=== PATIENT | female | born 1955 | race Caucasian/White ===

== ENCOUNTER 2019-01-15 20:21 | Emergency (ER) | payer MEDICARE, OTHER, SELFPAY ==
[2019-01-15 20:22] VITALS: BP 157/76; PULSE 73; RESP 18; TEMP 36.8; O2SAT 97; BMI 26.8
[2019-01-15 21:53] VITALS: PULSE 75; RESP 15; O2SAT 96
--- NOTE | 2019-01-15 21:53 | ED.DCSUM_ITS ---
- ER Visit Summary Date of Service: 01/15/19 Chief Complaint: Swollen lymph nodes left-sided neck History of Present Illness: The patient is a 63 F plan swollen lymph nodes left side of her neck with discomfort. Started today. No fever. No sore throat. No earache. No chills. No dental pain or swelling. Physical Examination: Older female no acute distress vital signs stable afebrile. at bedside. H EENT exam both TMs are normal both canals are normal. No redness or swelling. Dentition upper dentures. Lower dentition unremarkable. Nontender no jaw swelling. Neck she is 1-2 swollen lymph nodes at the angle of her left jaw. There is no swelling of the jaw. Trachea midline. No right-sided or posterior lymphadenopathy. Lungs clear to auscultation. Heart regular rhythm no murmur. Abdomen soft. Neurologically awake and alert with no focal motor deficits. Test Results: None Emergency Department Course and Treatment: Discussed with patient cervical lymphadenopathy. She states she has Bactrim at home and she wants to use that. She will take Bactrim 1 pill twice a day for 7 days. Treatment Plan: Home antibiotic for 1 week. Follow-up if not improving. Disposition: Discharge Impression: Left anterior chain cervical lymphadenopathy This note was generated with [employer] dictation software. It may contain incorrect words, spelling, and punctuation that were not noted in review of the chart prior to signing ED Disposition - Plan for ED Patient: Referrals: Alesia Montes De Oca PA [Primary Care Provider] -
--- NOTE | 2019-01-15 21:55 | ED.DEP ---
ED Disposition - Plan for ED Patient: Disposition: Home or Assisted Living Instructions: CERVICAL ADENITIS, Antiobiotic Treatment Prescriptions: Cephalexin [Keflex] 500 mg PO Q6 #28 cap Prescription Printed Referrals: Alesia Montes De Oca PA [Primary Care Provider] - 3-5 Days if not improving Additional Instructions: Bactrim 1 pill twice a day for 1 week. If not improving stop the Bactrim and start the Keflex prescription I wrote for you. Your doctor if not improving. Return if a lot worse.
== END 2019-01-15 22:03 | disposition home or self-care (01) ==
PROVIDERS: Emergency Provider Emergency Medicine; Family Provider Physician Assistant; PCP Physician Assistant
DX: R59.0 Localized enlarged lymph nodes (principal)
CPT/HCPCS: 99282

== ENCOUNTER → 2019-02-21 13:55 | Outpatient (CLI) | payer MEDICARE, OTHER, SELFPAY | PROVIDERS: Family Provider Physician Assistant; PCP Physician Assistant; Referring Provider Family Medicine; Visit Provider Family Medicine | DX: R07.9 Chest pain, unspecified (principal) | CPT/HCPCS: 84484 ==

== ENCOUNTER 2019-05-31 17:51 | Observation (INO) | payer MEDICARE, OTHER, SELFPAY ==
[2019-05-31] VITALS (8 sets, daily range): BP systolic 138–164; BP diastolic 60–90; PULSE 70–82; RESP 13–20; TEMP 36.2–36.4; O2SAT 98–100; BMI 28.3; BMI 28.7
--- NOTE | 2019-05-31 19:00 | EKG12_ITS ---
Test Reason : CP Blood Pressure : / mmHG Vent. Rate : 073 BPM Atrial Rate : 073 BPM P-R Int : 112 ms QRS Dur : 090 ms QT Int : 422 ms P-R-T Axes : 050 043 035 degrees QTc Int : 464 ms Normal sinus rhythm Nonspecific ST abnormality Abnormal ECG Confirmed by MARIETTA TALBERT ([id number]), sound editor MONY PEREZ ([id number]) on 06/02/2019 10:30:35 AM Referred By: JOSE MANUEL
[2019-05-31] MEDS: Aspirin 81 MG TAB.CHEW 324 MG PO (19:04)
--- NOTE | 2019-05-31 19:04 | RAD_ITS ---
STUDY: X-RAY CHEST REASON FOR EXAM: Female, 63 years old. SOB TECHNIQUE: Single frontal view of the chest. COMPARISON: November 20, 2015. FINDINGS: Cardiac silhouette unremarkable. Pulmonary vascularity unremarkable. Aorta unremarkable. No focal airspace opacities. No pleural effusions. Upper abdomen unremarkable. Osseous structures intact. No pneumothorax. RAD/Chest 1 View (Portable) IMPRESSION: No acute cardiopulmonary findings Electronically Signed: Freddy Lester, at 19:45 EST Tel , Service support ,
[2019-05-31] MEDS: 0.9% Normal Saline 1,000 ML 150 ML IV (19:15)
[2019-05-31 19:17] LABS: Absolute Lymphocyte Count 2.28 X10^3/uL (0.83-4.51); Absolute Neutrophil Count 3.8 X10^3/uL (2.0-7.7); Basophil# 0.04 X10^3/uL; Basophil% 0.6 % (0-1); Eosinophil# 0.08 X10^3/uL; Eosinophils% 1.2 % (0-5); Hematocrit 43.9 % (37-47); Hemoglobin 14.3 g/dL (12.0-15.0); Lymphocyte # 2.28 X10^3/ul (4.0); Lymphocyte % 33.1 % (19-41); Mean Corp Hgb Conc 32.6 g/dL (32-36); Mean Corpuscular Hgb 30.9 pg (27.0-32.0); Mean Corpuscular Volume 94.8 fL (81-99); Mean Platelet Vol. 9.2 fl (6.2-12.0); Monocyte# 0.67 X10^3/uL; Monocyte% 9.7 % (0-10); NRBC Flagged by Analyzer 0 % (0-5); Neutrophil # 3.78 X10^3/uL (2.7-7.7); Neutrophil % 54.8 % (47-70); Platelet Count 309 K/mm3 (150-450); RBC Distribution Width CV 12.7 % (11.6-14.6); Red Blood Count 4.63 M/mm3 (4.2-5.4); White Blood Count 6.9 K/mm3 (4.4-11.0)
[2019-05-31 19:28] LABS: Anion Gap 9 (5-15); BUN 12 mg/dL (7-18); BUN/Creat Ratio 14.5 RATIO (10-20); Calcium,Total 10.2 mg/dL (8.5-10.1); Chloride 104 mmol/L (98-107); Creatinine, Serum 0.83 mg/dL (0.55-1.02); EST Glomerular Filtration Rate 74 mL/min (>60); Est Glom Filt Rate - Afr Amer 89 mL/min (>60); Estimated Creatinine Clearance 60.81 ml/min; Glucose 102 mg/dL (74-106); Potassium 4.1 mmol/L (3.5-5.1); Sodium Level 140 mmol/L (136-145)
--- NOTE | 2019-05-31 19:40 | ED.VISSUMM ---
- ER Visit Summary Date of Service: 05/31/19 Chief Complaint: Neck and chest pain History of Present Illness: The patient is a [address] Puri. She reports that she has intermittent neck and chest pain that began approximate 1 month ago. States it is happening every 2 to 3 days. She states that she woke with this from sleep 2 days ago. She was diaphoretic and at that time. She reports the most recent episode began today at 1 PM while she was at rest. The last approximately 2 hours ago. It was a sharp pain that was 10 on 10 severity. Began on the right side of her neck and radiated down into the right upper back and into her chest. It was 10 out of 10 at worst and is 3 out of 10 currently. This was not changed with exertion or deep breaths. In fact, she reports that is improved by deep breaths. She took nitro without relief. She denies any associated nausea, vomiting, or shortness of breath. Patient has no coronary risk factors. She does have a history of rheumatoid arthritis. She has never had a heart catheterization. She had a stress test 4 years ago. States that she is scheduled for a stress test on June 20. Physical Examination: Vitals: Stable. Afebrile. General: Well-nourished and well-developed. Head: Normocephalic atraumatic. Neck: Supple, no lymphadenopathy. No JVD. Nontender. I am unable to reproduce her pain with palpation of her neck or back. Cardiovascular: Regular rate and rhythm. No murmurs. Respiratory: No respiratory distress. Clear to auscultation bilaterally. Chest is nontender. Abdominal: Soft, nontender, nondistended, normal bowel sounds. No guarding, rebound, or peritoneal signs. Back: Nontender. Extremities: Nontender, no edema. Skin: Normal color, no rash. Neurologic: Alert and oriented ?3. Cranial nerves II through XII are intact. Normal strength and sensation. Psych: Normal affect. Test Results: EKG is sinus at [address] changes. It is unchanged from 2016. CBC is normal. Chem-7 shows a calcium of 10.2. Troponin is negative. Chest x-ray is normal. Emergency Department Course and Treatment: Patient was given aspirin p.o. She is resting comfortably. She refused pain medications. Treatment Plan: The patient was discussed with Dr. Gutierrez. She has a heart score of 4 and will be admitted for further evaluation and treatment. Disposition: Admitted in stable condition. Impression: 1. Chest pain. 2. UMU score of 2. This note was generated with [employer] dictation software. It may contain incorrect words, spelling, and punctuation that were not noted in review of the chart prior to signing ED Disposition - Plan for ED Patient: Referrals: Alesia Montes De Oca PA [Primary Care Provider] -
--- NOTE | 2019-05-31 19:52 | PCM.HP.STD ---
Problem List (1) HLD (hyperlipidemia) Status: Chronic Comment: intolerant of statins (2) IBS (irritable bowel syndrome) Status: Chronic (3) Chest pain Status: Acute (4) GERD (gastroesophageal reflux disease) Status: Chronic Comment: occasional (5) Former smoker Status: Chronic Comment: quit in 2011 History of Present Illness Date of Admission: 05/31/19 Chief Complaint: Neck and chest pain. The patient is a 63 year old F patient with past medical history as mentioned above presented to the emergency room because of neck and chest pain. Her symptoms started today around 1 PM when she was sitting at her desk, started having pain that was located just below her right ear, went down to the neck and down to the chest on the middle of the chest, sharp pain, 10 out of 10 in severity, intermittent, lasts for about 30 to 45 seconds and was recurrent and without aggravating or relieving symptoms. She mentioned she has been having dose intermittent pains the same pattern in the last month but today, it was more frequent than usual. She denied associated shortness of breath, palpitation, dizziness, syncope or presyncope. She denied nausea, vomiting or diaphoresis. At this time, she has no more pain. Her blood pressure slightly better, other vital signs were stable. Routine blood work was unremarkable. Chest x-ray revealed no acute findings. EKG revealed normal sinus rhythm, no AR interval, normal QRS and without evidence of acute ischemic changes. Troponin was negative. She is being admitted for atypical chest pain for evaluation. Past Medical History Past Medical History (Chronic Problems): Chronic Problems HLD (hyperlipidemia) (Chronic) intolerant of statins Tobacco use disorder (Chronic) History of sciatica (Chronic) IBS (irritable bowel syndrome) (Chronic) History of gastrointestinal hemorrhage (Chronic) due to diverticular disease Diverticulosis of colon without diverticulitis (Chronic) GERD (gastroesophageal reflux disease) (Chronic) occasional Former smoker (Chronic) quit in 2011 Family history of breast cancer in mother (Chronic) Osteoarthritis (Chronic) Allergies erythromycin base [Erythromycin Base] Allergy (Severe, Verified 05/31/19 17:53) Anaphylaxis amoxicillin [Amoxicillin] Allergy (Verified 05/31/19 17:53) Upset Stomach atorvastatin Allergy (Verified 05/31/19 17:53) Unknown cefuroxime axetil [From Ceftin] Allergy (Verified 05/31/19 17:53) Diarrhea clindamycin Allergy (Verified 05/31/19 17:53) Hives methylprednisolone Allergy (Verified 05/31/19 17:53) Heart races prednisone Allergy (Verified 05/31/19 17:53) Swelling amoxicillin trihydrate [From Augmentin] Adverse Reaction (Verified 05/31/19 17:53) Diarrhea potassium clavulanate [From Augmentin] Adverse Reaction (Verified 05/31/19 17:53) Diarrhea Home Medications: Ambulatory Orders Medication Instructions Recorded Furosemide [Lasix] 20 mg PO DAILY PRN PRN 09/12/13 Docusate Sodium [Colace] 100 mg PO QHS 09/22/13 Cholecalciferol (Vitamin D3) 5,000 units PO DAILY 11/20/15 [Vitamin D3] [place]-3 Fatty Acids/Fish Oil [Fish 1,000 mg PO DAILY 11/20/15 Oil 1,000 mg Capsule] cycloBENZAPRine HCl [Flexeril] 10 mg PO QHS 11/20/15 Nitroglycerin (INPATIENT USE) 0.4 mg SUBLINGUAL Q5M PRN #1 bottle 11/21/15 [Nitrostat] Cranberry Fruit Concentrate [Azo 250 mg PO DAILY 03/24/17 Cranberry] L.acidoph,Paracasei, B.lactis 1 each PO QHS 03/24/17 [Probiotic] Hydroxychloroquine Sulfate 200 mg PO BID 01/15/19 [Plaquenil] Biotin 1 mg PO DAILY 05/31/19 Hydrocortisone [Anusol Hc] 25 mg RECTAL BID PRN PRN 05/31/19 Meclizine HCl 25 mg PO Q6H PRN 05/31/19 Naproxen Sodium 440 mg PO DAILY PRN PRN 05/31/19 Omeprazole [Prilosec] 20 mg PO BID 05/31/19 Surgical History: colectomy - Partial colectomy for diverticulosis, hysterectomy - Initially had oophorectomy X 1 for a tubal and then had a hyster for DUB and then had the other ovary removed because...it was the size of a grapefruit., tonsillectomy, - - Carpal tunnel release on the right Psychiatric History: No pertinent psych hx 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 Paternal History Items: Cancer Review of Systems Constitutional: Denies: Anorexia, Chills, Fever, Weakness Eyes: Denies: Blurred vision, Double vision, Drainage, Redness HEENT: Denies: Difficulty Hearing, Ear Pain, Eye Pain, Nasal Congestion, Sore Throat Cardiovascular: Reports: Chest Pain. Denies: Chest Pressure, Chest Tightness, Edema, Heaviness, Orthopnea, Paroxysmal Noc. Dyspnea, Syncope Respiratory: Denies: Cough, Pleuritic Pain, Shortness of Breath, Sputum production, Wheezing Gastrointestinal: Denies: Abdominal Pain, Constipation, Diarrhea, Nausea, Vomiting Genitourinary: Denies: Dysuria, Frequency, Hematuria Musculoskeletal: Reports: Neck Pain. Denies: Arm Pain, Back Pain, Foot Pain Skin: Denies: Dryness, Rash Neurological: Denies: Balance problems, Double vision, Change in Speech, Slurred speech, Headaches, Incoordination, Numbness Psychiatric: Denies: Anxiety, Depression Endocrine: Denies: Change in Body Habitus, Polydipsia, Polyuria VTE Information - Inpt Only VTE Present on Admission: No VTE Mechan Device Prophylaxis: None VTE Pharm Prophylaxis ordered?: Yes - Physical Exam Vitals/I&O's: Vital Signs Temp Pulse Resp BP Pulse Ox 97.1 F L 77 20 H 153/81 H 99 05/31/19 17:53 05/31/19 19:00 05/31/19 19:00 05/31/19 19:00 05/31/19 19:00 Oxygen Flow Rate (L/min) 2 Oxygen Delivery Method Nasal Cannula Weight: 170 lb Body Mass Index (BMI) 28.3 General: Alert, Oriented x3, Cooperative, No apparent distress HEENT: Atraumatic, PERRLA, EOMI, Normocephalic Oral: Moist Mucosa, No Gingival or Mucosal Lesions/ Ulcerations Neck: Supple, No JVD, Negative Carotid Bruits, Trachea Midline, Thyroid Normal Size and Texture Lungs: Clear to auscultation, Normal air movement, No rhonchi, No wheeze, No rales Cardiovascular: Regular rate, Regular Rhythm, Normal S1, Normal S2, PMI Normal Abdomen: Bowel Sounds Present, Soft, Non Tender, Non-Distended, No Hepato-splenomegaly Extremities: No clubbing, No cyanosis, No edema Skin: No rashes, No breakdown Lymphatic: No Cervical, Supraclavicular, or Inguinal Adenopathy Neurological: Cranial nerves II-XII grossly intact, Motor Exam 5/5 strength throughout Psych/Mental Status: Normal Affect, Appropriate, Alert and oriented to time, place, person, mood and affect Laboratory Results 05/31/19 18:15: WBC 6.9, RBC 4.63, Hgb 14.3, Hct 43.9, MCV 94.8, MCH 30.9, MCHC 32.6, RDW Std Deviation 44.0 H, RDW Coeff of Yusra 12.7, Plt Count 309, MPV 9.2, Immature Gran % (Auto) 0.600, Neut % (Auto) 54.8, Lymph % (Auto) 33.1, [place] % (Auto) 9.7, Eos % (Auto) 1.2, Baso % (Auto) 0.6, Absolute Neuts (auto) 3.8, Absolute Lymphs (auto) 2.28, Nucleated RBC % 0 05/31/19 18:15: Sodium 140, Potassium 4.1, Chloride 104, Carbon Dioxide 27.0, Anion Gap 9, BUN 12, Creatinine 0.83, Estim Creat Clear Calc 60.81, Est GFR (MDRD) Af Amer 89, Est GFR (MDRD) Non-Af 74, BUN/Creatinine Ratio 14.5, Glucose 102, Calcium 10.2 H, Troponin I < 0.015 Clinical Impression(s) from Imaging Studies Chest X-Ray 05/31/19 19:04 IMPRESSION: No acute cardiopulmonary findings Electronically Signed: Freddy Lester, at 19:45 EST Tel , Service support , Current Medications Sodium Chloride () 1,000 mls @ 150 mls/hr IV .[id number] [facility] Last Admin: 05/31/19 19:15 Dose: 150 mls/hr Documented by: Assessment/Plan All Active Problems Chest pain (Acute) This is a 63 years old female patient presented to the emergency room because of neck and chest pain and she is being admitted for evaluation for atypical chest pain. #1 atypical chest pain: Risk factors are age and history of smoking, patient is a former smoker. No history of premature CAD in her family. EKG revealed no acute acute changes. Troponin is negative. Chest x-ray without acute findings. Plan: Admit to PCU for observation, cardiac monitoring, serial cardiac enzymes, repeat EKG tomorrow morning, IV fluids for hydration, nitroglycerin as needed, nuclear stress test tomorrow morning if cardiac enzymes are negative. #2 rheumatoid arthritis: Continue Flexeril and Plaquenil, Tylenol PRN. #3 GERD/esophageal spasm: Continue PPI, nebulizer PRN. #4 hyperlipidemia: She is not on statins, will check lipid profile. #5 DVT prophylaxis: Subcu Lovenox. This note was generated with [employer] dictation software. It may contain incorrect words, spelling, and punctuation that were not noted in checking the note before signing. Code Visit OBSV E&M: 98611 Initial observation care L2
--- NOTE | 2019-05-31 20:56 | EKG12_ITS ---
Test Reason : AM EKG Blood Pressure : / mmHG Vent. Rate : 069 BPM Atrial Rate : 069 BPM P-R Int : 130 ms QRS Dur : 090 ms QT Int : 446 ms P-R-T Axes : 046 022 026 degrees QTc Int : 477 ms Normal sinus rhythm Normal ECG When compared with ECG of 31-MAY-2019 21:37, MANUAL COMPARISON REQUIRED, DATA IS UNCONFIRMED Confirmed by MARIETTA TALBERT ([id number]), newspaper editor MONY PEREZ ([id number]) on 06/02/2019 10:43:15 AM Referred By: ENRRIQUE Confirmed By:MARIETTA TALBERT
[2019-05-31] MEDS: 0.9% Normal Saline 1,000 ML 75 ML IV (21:09)
[2019-05-31] MEDS: Hydroxychloroquine 200 MG Tablet PO (21:59)
[2019-05-31] MEDS: Pantoprazole Sodium 20 MG Tablet PO (22:00)
[2019-05-31] MEDS: Docusate Sodium 100 MG Capsule PO (22:00)
[2019-05-31] MEDS: cycloBENZAPRine HCl 10 MG Tablet PO (22:00)
[2019-06-01 03:00] VITALS: BP 118/52; PULSE 71; PULSE 75; RESP 18; TEMP 36.9; O2SAT 96
--- NOTE | 2019-06-01 05:55 | EKG12_ITS ---
Test Reason : CP ADMISSION Blood Pressure : / mmHG Vent. Rate : 069 BPM Atrial Rate : 069 BPM P-R Int : 130 ms QRS Dur : 088 ms QT Int : 456 ms P-R-T Axes : 049 029 032 degrees QTc Int : 488 ms Normal sinus rhythm Normal ECG When compared with ECG of 31-MAY-2019 17:56, MANUAL COMPARISON REQUIRED, DATA IS UNCONFIRMED Confirmed by MARIETTA TALBERT ([id number]), editor newspaper MONY PEREZ ([id number]) on 06/02/2019 10:43:57 AM Referred By: ENRRIQUE Confirmed By:MARIETTA TALBERT
[2019-06-01 06:00] VITALS: BP 117/57; PULSE 69; RESP 16; TEMP 36.8; O2SAT 97
[2019-06-01 07:01] VITALS: PULSE 77
[2019-06-01 10:17] VITALS: BP 119/84; PULSE 83; RESP 16; TEMP 36.7; O2SAT 98
[2019-06-01] MEDS: Hydroxychloroquine 200 MG Tablet PO (10:19)
[2019-06-01] MEDS: Pantoprazole Sodium 20 MG Tablet PO (10:19)
--- NOTE | 2019-06-01 13:11 | PCM.DC ---
You will use the following diet at home:: Cardiac Your food should be the consistency of: Regular Your liquids should be the consistency of: Regular/Thin Discharge Activity: Return to Normal Activity Allergies/Adverse Reactions: Allergies erythromycin base [Erythromycin Base] Allergy (Severe, Verified 05/31/19 17:53) Anaphylaxis atorvastatin Allergy (Verified 05/31/19 17:53) Unknown clindamycin Allergy (Verified 05/31/19 17:53) Hives amoxicillin [Amoxicillin] Adverse Reaction (Verified 05/31/19 20:01) Upset Stomach amoxicillin trihydrate [From Augmentin] Adverse Reaction (Verified 05/31/19 17:53) Diarrhea cefuroxime axetil [From Ceftin] Adverse Reaction (Verified 05/31/19 20:01) Diarrhea methylprednisolone Adverse Reaction (Verified 05/31/19 20:01) Heart races potassium clavulanate [From Augmentin] Adverse Reaction (Verified 05/31/19 17:53) Diarrhea prednisone Adverse Reaction (Verified 05/31/19 20:01) Swelling Medications to take at Discharge Furosemide [Lasix] 20 mg PO DAILY PRN PRN 09/12/13 Docusate Sodium [Colace] 100 mg PO QHS 09/22/13 Cholecalciferol (Vitamin D3) [Vitamin D3] 5,000 units PO DAILY 11/20/15 [place]-3 Fatty Acids/Fish Oil [Fish Oil 1,000 mg Capsule] 1,000 mg PO DAILY 11/20/15 cycloBENZAPRine HCl [Flexeril] 10 mg PO QHS 11/20/15 Nitroglycerin (INPATIENT USE) [Nitrostat] 0.4 mg SUBLINGUAL Q5M PRN #1 bottle 11/21/15 Cranberry Fruit Concentrate [Azo Cranberry] 250 mg PO DAILY 03/24/17 L.acidoph,Paracasei, B.lactis [Probiotic] 1 each PO QHS 03/24/17 Hydroxychloroquine Sulfate [Plaquenil] 200 mg PO BID 01/15/19 Biotin 1 mg PO DAILY 05/31/19 Hydrocortisone [Anusol Hc] 25 mg RECTAL BID PRN PRN 05/31/19 Meclizine HCl 25 mg PO Q6H PRN 05/31/19 Naproxen Sodium 440 mg PO DAILY PRN PRN 05/31/19 Omeprazole [Prilosec] 20 mg PO BID 05/31/19 Primary Care Physician: Alesia Montes De Oca PA [Primary Care Provider] - Please follow up with your Primary Care Physician in: 1-2 weeks Test Results: Test results from this visit will be discussed in further detail at your follow-up appointment, if applicable. Proposed Discharge Date: 06/01/19
--- NOTE | 2019-06-01 13:30 | STRESSREP ---
Stress Test Report Exercise myocardial perfusion stress test. 68-year-old lady with a history of chest pain. Stress protocol: Resting EKG demonstrates normal sinus rhythm with a rate of 73 bpm normal intervals are noted resting blood pressure is 142/82 mmHg. The patient exercised according to regular Jerald protocol for a total duration of 3 minutes and 31 seconds. The maximum heart rate attained was 151 bpm which was 100% of maximal predicted heart rate the maximum workload was 4.6 metabolic equivalents. Patient maintained sinus rhythm throughout the recording. At rest with no ST or T wave changes noted suggest ischemia at peak exercise upsloping ST changes were noted with no other criteria for ischemia. No clinical angina was noted the test was terminated due to target heart rate being achieved, and leg discomfort. Myocardial perfusion protocol. 11.5 mCi of technetium 99m sestamibi was injected at rest. The patient exercised according to regular Jerald protocol for 3-1/2 minutes at peak exercise 35.0 mCi of technetium 99m sestamibi was injected stress images were obtained stress and rest images were reconstructed and compared in the short axis vertical and horizontal long axis. Gated images were also obtained Perfusion SPECT analysis: Review of the images demonstrate normal uptake of tracer noted in all areas of the myocardium the resting images similar demonstrate normal uptake of tracer noted in all areas of the myocardium. No areas of reversibility are noted suggest ischemia no previous infarct is noted. Conclusion: Normal exercise myocardial perfusion stress test at a low workload. Preserved ejection fraction. No ischemia noted. Sensitivity for detection of ischemia may be affected by the low workload.
--- NOTE | 2019-06-01 14:15 | DS.PCM_ITS ---
<Douglas Lance - Last Filed: 06/01/19 14:15> Discharge Date and Diagnosis Date of Admission: 05/31/19 Date of Discharge: 06/01/19 - Primary Discharge Diagnosis Chest pain - musculoskeletal HLD IBS GERD Former smoker - Secondary Discharge Diagnosis Chronic Problems HLD (hyperlipidemia) (Chronic) intolerant of statins Tobacco use disorder (Chronic) History of sciatica (Chronic) IBS (irritable bowel syndrome) (Chronic) History of gastrointestinal hemorrhage (Chronic) due to diverticular disease Diverticulosis of colon without diverticulitis (Chronic) GERD (gastroesophageal reflux disease) (Chronic) occasional Former smoker (Chronic) quit in 2011 Family history of breast cancer in mother (Chronic) Osteoarthritis (Chronic) Hospital Course and Treatment Imaging Results: 06/01/19 05:55 Nuclear Stress Test - Treadmil [NM] Routine Conclusion: Normal exercise myocardial perfusion stress test at a low workload. Preserved ejection fraction. No ischemia noted. Sensitivity for detection of ischemia may be affected by the low workload. RAD/Chest 1 View (Portable) IMPRESSION: No acute cardiopulmonary findings Operations: None, - - Hand assisted laparoscopic sigmoid colectomy with open removal of sigmoid colon with extensive lysis of adhesions 09/22/13 Procedures: Stress test Summary of Care Provided: Hospital course: The patient is a 63 year old F with past medical history as above who presented to the emergency room with intermittent chest pain. Started at about 1 PM the day of presentation and was described as being in her neck below her right ear radiating down into the middle of the chest, 10 out of 10 in severity, lasting for about 30 to 45 seconds and coming and going throughout the day. In the emergency room she had a negative EKG, negative chest x-ray, negative troponin. She was admitted for chest pain work-up. Troponin was cycled x3 and was negative. She had no events on telemetry overnight. She was taken for stress test the following day and this was negative. She was felt to have musculoskeletal pain. She was discharged home in stable condition and will need to follow-up with her PCP in 1 to 2 weeks. This patient was seen by Douglas Lance PA-C under the supervision of Doctor Lawson. [] - Physical Exam Vitals/I&O's: Vital Signs Temp Pulse Resp BP Pulse Ox 98.1 F 83 16 119/84 H 98 06/01/19 10:17 01/29/20 10:17 06/01/19 10:17 06/01/19 10:17 06/01/19 10:17 Oxygen Flow Rate (L/min) 2 Oxygen Delivery Method Room Air Weight: 172 lb 9.951 oz Body Mass Index (BMI) 28.7 Intake and Output for Last 24 Hours 05/30/19 05/31/19 06/01/19 23:59 23:59 23:59 Intake Total 695.0 / 695.0 1017.50 / 1017.50 Balance 695.0 / 695.0 1017.50 / 1017.50 General: Alert, Oriented x3, Cooperative HEENT: Atraumatic, PERRLA, EOMI, Normocephalic Neck: Supple, No JVD, Negative Carotid Bruits Lungs: Clear to auscultation, Normal air movement Cardiovascular: Regular rate, No murmurs Abdomen: Bowel Sounds Present, Soft, Non Tender Extremities: No edema, Capillary Refill Less than 3 Seconds Skin: No rashes, No breakdown Musculoskeletal: No Tenderness to Palpation of Joints or Extremities Neurological: Cranial nerves II-XII grossly intact Psych/Mental Status: Appropriate, Anxious, Alert and oriented to time, place, person, mood and affect Laboratory Results 05/31/19 18:15: WBC 6.9, RBC 4.63, Hgb 14.3, Hct 43.9, MCV 94.8, MCH 30.9, MCHC 32.6, RDW Std Deviation 44.0 H, RDW Coeff of Yusra 12.7, Plt Count 309, MPV 9.2, Immature Gran % (Auto) 0.600, Neut % (Auto) 54.8, Lymph % (Auto) 33.1, Cottle % (Auto) 9.7, Eos % (Auto) 1.2, Baso % (Auto) 0.6, Absolute Neuts (auto) 3.8, Absolute Lymphs (auto) 2.28, Nucleated RBC % 0 05/31/19 18:15: Sodium 140, Potassium 4.1, Chloride 104, Carbon Dioxide 27.0, Anion Gap 9, BUN 12, Creatinine 0.83, Estim Creat Clear Calc 60.81, Est GFR (M DRD) Af Amer 89, Est GFR (MDRD) Non-Af 74, BUN/Creatinine Ratio 14.5, Glucose 102, Calcium 10.2 H, Troponin I < 0.015 05/31/19 21:12: Troponin I < 0.015 06/01/19 00:14: Troponin I < 0.015 Current Medications Acetaminophen (Tylenol) 650 mg PO Q6H PRN PRN PRN Reason: Pain Score 1-3/Temp > 100.7 F Cyclobenzaprine HCl (Flexeril) 10 mg PO QHS [facility] Last Admin: 05/31/19 22:00 Dose: 10 mg Documented by: Docusate Sodium (Colace) 100 mg PO BID [facility] Last Admin: 06/01/19 10:20 Dose: Not Given Documented by: Enoxaparin Sodium (Lovenox) 40 mg SC DAILY [facility] Hydralazine HCl (Apresoline Iv) 5 mg IV Q6H PRN PRN PRN Reason: for SBP>160 Hydroxychloroquine Sulfate (Plaquenil) 200 mg PO BID [facility] Last Admin: 06/01/19 10:19 Dose: 200 mg Documented by: Meclizine HCl (Antivert) 25 mg PO Q6H PRN PRN Reason: DIZZINESS Nitroglycerin (Nitrostat) 0.4 mg SUBLINGUAL Q5M PRN PRN Reason: CHEST PAIN Ondansetron HCl (Zofran) 4 mg IV Q8H PRN PRN PRN Reason: NAUSEA/VOMITING Pantoprazole Sodium (Protonix) 20 mg PO BID [facility] Last Admin: 06/01/19 10:19 Dose: 20 mg Documented by: Sodium Chloride () 10 - 40 ml IV UD PRN PRN Reason: SALINE FLUSH Discharge Diet: Low fat/ Low Cholesterol, 2000 mg Sodium Diet Discharge Activity: Return to Normal Activity Home Medications: Medications to take at Discharge Furosemide [Lasix] 20 mg PO DAILY PRN PRN 09/12/13 Docusate Sodium [Colace] 100 mg PO QHS 09/22/13 Cholecalciferol (Vitamin D3) [Vitamin D3] 5,000 units PO DAILY 11/20/15 Minto-3 Fatty Acids/Fish Oil [Fish Oil 1,000 mg Capsule] 1,000 mg PO DAILY 11/20/15 cycloBENZAPRine HCl [Flexeril] 10 mg PO QHS 11/20/15 Nitroglycerin (INPATIENT USE) [Nitrostat] 0.4 mg SUBLINGUAL Q5M PRN #1 bottle 11/21/15 Cranberry Fruit Concentrate [Azo Cranberry] 250 mg PO DAILY 03/24/17 L.acidoph,Paracasei, B.lactis [Probiotic] 1 each PO QHS 03/24/17 Hydroxychloroquine Sulfate [Plaquenil] 200 mg PO BID 01/15/19 Biotin 1 mg PO DAILY 05/31/19 Hydrocortisone [Anusol Hc] 25 mg RECTAL BID PRN PRN 05/31/19 Meclizine HCl 25 mg PO Q6H PRN 05/31/19 Naproxen Sodium 440 mg PO DAILY PRN PRN 05/31/19 Omeprazole [Prilosec] 20 mg PO BID 05/31/19 Primary Care Physician: Alesia Montes De Oca PA [Primary Care Provider] - Please follow up with your Primary Care Physician in: 1-2 weeks Disposition: Home Minutes spent on discharge:: 35 Patient Condition:: Stable Medical Necessity - Tobacco Use Smoking Status: Former smoker Meaningful Use Info Meaningful Use Diagnoses (Choose all that apply): None applicable <Payam Lawson - Last Filed: 06/01/19 14:25> Discharge Date and Diagnosis - Secondary Discharge Diagnosis Chronic Problems HLD (hyperlipidemia) (Chronic) intolerant of statins Tobacco use disorder (Chronic) History of sciatica (Chronic) IBS (irritable bowel syndrome) (Chronic) History of gastrointestinal hemorrhage (Chronic) due to diverticular disease Diverticulosis of colon without diverticulitis (Chronic) GERD (gastroesophageal reflux disease) (Chronic) occasional Former smoker (Chronic) quit in 2011 Family history of breast cancer in mother (Chronic) Osteoarthritis (Chronic) Hospital Course and Treatment Imaging Results: 06/01/19 05:55 Nuclear Stress Test - Treadmil [NM] Routine Summary of Care Provided: This patient was seen in conjunction with Douglas Lance PA-C . I have independently interviewed and examined the patient and reviewed pertinent historical, laboratory, and other data. Please refer to Douglas Lance PA-C note for details of this patient's presentation, findings, and recommendations. I have reviewed Douglas Lance PA-C note and concur with documented findings. In brief, patient is a 63-year-old lady who presented with chest pain. Patient was placed on a monitored bed [place] was ruled out with serial cardiac enzymes. Patient subsequently went to nuclear stress test which was negative for stress- induced ischemia discharged home instructed to follow-up with PCP for subsequent evaluation of her chest discomfort Hospital course: As documented above - Physical Exam Vitals/I&O's: Vital Signs Temp Pulse Resp BP Pulse Ox 98.1 F 83 16 119/84 H 98 06/01/19 10:17 06/01/19 10:17 06/01/19 10:17 06/01/19 10:17 06/01/19 10:17 Oxygen Flow Rate (L/min) 2 Oxygen Delivery Method Room Air Weight: 78.3 kg Body Mass Index (BMI) 28.7 Intake and Output for Last 24 Hours 05/30/19 05/31/19 06/01/19 23:59 23:59 23:59 Intake Total 695.0 / 695.0 1017.50 / 1017.50 Balance 695.0 / 695.0 1017.50 / 1017.50 Laboratory Results 05/31/19 18:15: WBC 6.9, RBC 4.63, Hgb 14.3, Hct 43.9, MCV 94.8, MCH 30.9, MCHC 32.6, RDW Std Deviation 44.0 H, RDW Coeff of Yusra 12.7, Plt Count 309, MPV 9.2, Immature Gran % (Auto) 0.600, Neut % (Auto) 54.8, Lymph % (Auto) 33.1, Cottle % (Auto) 9.7, Eos % (Auto) 1.2, Baso % (Auto) 0.6, Absolute Neuts (auto) 3.8, Absolute Lymphs (auto) 2.28, Nucleated RBC % 0 05/31/19 18:15: Sodium 140, Potassium 4.1, Chloride 104, Carbon Dioxide 27.0, Anion Gap 9, BUN 12, Creatinine 0.83, Estim Creat Clear Calc 60.81, Est GFR (MDRD) Af Amer 89, Est GFR (MDRD) Non-Af 74, BUN/Creatinine Ratio 14.5, Glucose 102, Calcium 10.2 H, Troponin I < 0.015 05/31/19 21:12: Troponin I < 0.015 06/01/19 00:14: Troponin I < 0.015 Current Medications Acetaminophen (Tylenol) 650 mg PO Q6H PRN PRN PRN Reason: Pain Score 1-3/Temp > 100.7 F Cyclobenzaprine HCl (Flexeril) 10 mg PO QHS [facility] Last Admin: 05/31/19 22:00 Dose: 10 mg Documented by: Docusate Sodium (Colace) 100 mg PO BID [facility] Last Admin: 06/01/19 10:20 Dose: Not Given Documented by: Enoxaparin Sodium (Lovenox) 40 mg SC DAILY [facility] Hydralazine HCl (Apresoline Iv) 5 mg IV Q6H PRN PRN PRN Reason: for SBP>160 Hydroxychloroquine Sulfate (Plaquenil) 200 mg PO BID [facility] Last Admin: 06/01/19 10:19 Dose: 200 mg Documented by: Meclizine HCl (Antivert) 25 mg PO Q6H PRN PRN Reason: DIZZINESS Nitroglycerin (Nitrostat) 0.4 mg SUBLINGUAL Q5M PRN PRN Reason: CHEST PAIN Ondansetron HCl (Zofran) 4 mg IV Q8H PRN PRN PRN Reason: NAUSEA/VOMITING Pantoprazole Sodium (Protonix) 20 mg PO BID [facility] Last Admin: 06/01/19 10:19 Dose: 20 mg Documented by: Sodium Chloride () 10 - 40 ml IV UD PRN PRN Reason: SALINE FLUSH Code Visit OBSV E&M: 38658 Observation care discharge
[2019-06-01 14:59] VITALS: BP 115/46; PULSE 98; RESP 16; TEMP 36.6; O2SAT 99
[2019-06-01 15:07] VITALS: PULSE 86
--- NOTE | 2019-06-02 11:00 | STRESSREP ---
Stress Test Report Exercise myocardial perfusion stress test. 63-year-old lady with a history of chest pain. Stress protocol: Resting EKG demonstrates normal sinus rhythm with a rate of 73 bpm, normal intervals are noted. Resting blood pressure is 146/80 mmHg. The patient exercised according to regular Jerald protocol for a total duration of 6 minutes. The maximum heart rate attained was 144 bpm which was 92% of maximum predicted heart rate the maximum workload was 7 metabolic equivalents. The patient maintained sinus rhythm throughout the recording. At rest there were no ST or T wave changes noted suggest ischemia and at peak exercise upsloping ST changes only were noted with no criteria for ischemia. No clinical angina was noted. The test was terminated due to attainment of target heart rate. Mild dyspnea was noted. The resting blood pressure was 146/80 with a peak blood pressure of 200/82 mmHg. No clinical angina was noted. Myocardial perfusion protocol. 11.5 mCi of technetium 99m sestamibi was injected at rest. Patient exercised according to regular Jerald protocol for 6 minutes, and at peak exercise 35.0 mCi of technetium 99m sestamibi was injected. Stress images were obtained. Stress and rest images were reconstructed and compared in the short axis vertical long horizontal long axis. Gated images were also obtained. Perfusion SPECT analysis: Review of the stress images demonstrate normal uptake of tracer noted in all areas of the myocardium. The resting images similar demonstrate normal uptake of tracer noted in all areas of the myocardium. No reversibility is noted suggest ischemia and no previous infarct is noted. Gated SPECT analysis: The gated ejection fraction is noted to be 65%. Conclusion: Normal exercise myocardial perfusion stress test at a moderate workload. No ischemia noted. Preserved ejection fraction.
== END 2019-06-01 13:11 | disposition home or self-care (01) ==
LOC: ED 19:09 → PCU 19:55
PROVIDERS: Admitting Provider Hospitalist; Emergency Provider Emergency Medicine; PCP Physician Assistant; Visit Provider Internal Medicine
DX: R07.89 Other chest pain (principal); K21.9 Gastro-esophageal reflux disease without esophagitis; E78.5 Hyperlipidemia, unspecified; K58.9 Irritable bowel syndrome, unspecified; M19.90 Unspecified osteoarthritis, unspecified site; M54.2 Cervicalgia; M06.9 Rheumatoid arthritis, unspecified; Z87.891 Personal history of nicotine dependence; Z79.899 Other long term (current) drug therapy; R94.31 Abnormal electrocardiogram [ECG] [EKG]
CPT/HCPCS: 36415; 71045; 78452; 80048; 84484; 85025; 93005; 93017; 96360; 96361; 99218; 99285; A9500; J7030; A4216; G0378

== ENCOUNTER → 2020-09-24 12:44 | Outpatient (CLI) | payer MEDICARE, OTHER, SELFPAY ==
[2020-09-14 05:33] VITALS: BMI 28.7
[2020-09-24 14:21] LABS: Creatinine, Serum 0.61 mg/dL (0.55-1.02); EST Glomerular Filtration Rate 104 mL/min (>60); Est Glom Filt Rate - Afr Amer 126 mL/min (>60)
== END ==
PROVIDERS: PCP Physician Assistant; Referring Provider Physician Assistant Surgical; Visit Provider Physician Assistant Surgical
DX: N28.9 Disorder of kidney and ureter, unspecified (principal)
CPT/HCPCS: 36415; 82565

== ENCOUNTER → 2022-06-25 | Outpatient (CLI) | payer MEDICARE, OTHER, SELFPAY ==
--- NOTE | 2022-06-25 10:00 | MRI_ITS ---
STUDY: MRI LUMBAR SPINE WITHOUT CONTRAST REASON FOR EXAM: Female, 66 years old. Low back pain, right hip pain and leg pain. TECHNIQUE: Standardized fat and water weighted pulse sequences were obtained in the sagittal and axial planes. COMPARISON: MRI lumbar spine without contrast 08/04/2012. FINDINGS: T11-T12: Normal T11 inferior endplate. Minimal anterior wedging of T12 superior endplate is unchanged. Moderate disc space height narrowing. Prominent midline subligamentous disc protrusion causing prominent ventral extradural defect. Normal facet joints. Normal central canal and bilateral lateral recesses. Normal bilateral intervertebral neural foramina. T12-L1: (Sagittal only). Normal endplates. Mild disc space height narrowing. No ventral extradural defect. Normal central canal and bilateral intervertebral neural foramina. Normal lumbar lordosis. There is no substantial scoliosis. Abnormal intramedullary T2 high signal intensity of the thoracic spinal cord at the upper T11 vertebral body level is at least syrinx. This has increased slightly in length. Normal conus medullaris that terminates at the L1-L2 disc space level. L1-2: Normal endplates. Normal disc height, hydration and morphology. Normal bilateral facet joints. Normal central canal and bilateral lateral recesses. Normal bilateral intervertebral neural foramina. L2-3: Normal endplates. Mild disc space height narrowing is a new finding. Mild posterior bulging annulus in both sides of the supra pedicular level foraminal zones (series 5 and 6, images 6 and 13). Normal bilateral intervertebral neural foramina. Normal facet joints. Normal central canal and bilateral lateral recesses. L3-4: Normal endplates. Mild disc space height narrowing is a new finding. Interval collapse of the right foraminal cephalad disc extrusion and the encroachment on the right L3 nerve. Normal left intervertebral neural foramen. Mild ventral extradural defect due to posterior bulging annulus. Normal facet joints. Normal central canal and bilateral lateral recesses. L4-5: Normal endplates. Minimal disc space height narrowing. Mild degenerative anterolisthesis of L4 on L5 is a new finding. Mild increase bilateral L4-L5 degenerative facet arthropathy. Mild central canal stenosis with an AP canal diameter of 10 mm is unchanged. Normal bilateral lateral recesses. Normal bilateral intervertebral neural foramina. L5-S1: Normal endplates. Normal disc height, hydration and morphology. Mild increase in bilateral degenerative facet arthropathy, left greater than right. Normal central canal and bilateral lateral recesses. Normal bilateral intervertebral neural foramina. Normal visualized sacral ala. Normal visualized paraspinous soft tissue structures. MRI/Spine Lumbar (Routine) IMPRESSION: 1. Prominent T11-T12 posterior midline subligamentous disc protrusion, new when compared to 08/04/2012. 2. Interval collapse of the right L3-L4 foraminal cephalad disc extrusion and the encroachment on the right L3 nerve. 3. Mild L2-L3 posterior bulging annulus in both sides of the L3 supra pedicular level foraminal zones (series 5 and 6, images 6 and 13). 4. Mild degenerative anterolisthesis of L3 on L4 is a new finding due to mild increase bilateral L4-L5 degenerative facet arthropathy. The mild central canal stenosis with an AP canal diameter of 10 mm is unchanged. 5. Mild increase bilateral L5-S1 degenerative facet arthropathy, left greater than right. 6. Minimal increase in length of the caudal extension of the small syrinx of the lower thoracic spinal cord at the upper T11 vertebral body level when compared to 08/04/2012. This may be benign nonneoplastic syrinx but I am not completely certain without MRI of the thoracic spine and cervical spine for comparison. RECOMMENDATION: MRI of the thoracic spine and cervical spine with and without contrast for further evaluation. Electronically Signed: Se Clinton MD at 16:06 EST ,
== END | disposition home or self-care (01) ==
LOC: MRI 09:39
PROVIDERS: PCP Physician Assistant; Referring Provider Orthopaedic Surgery; Visit Provider Orthopaedic Surgery
DX: M47.816 Spondylosis without myelopathy or radiculopathy, lumbar region (principal)
CPT/HCPCS: 72148

== ENCOUNTER 2022-07-22 05:52 | Day surgery (SDC) | payer MEDICARE, OTHER, SELFPAY ==
--- NOTE | 2022-07-22 06:12 | HP.PCM_ITS ---
[facility] - [facility] General Date of Service: 07/22/22 Chief Complaint: Personal history of colon polyps [facility] Narrative RODRIGO SOLARES, is a 66 F who presents for surveillance colonoscopy as she has a personal history of colon polyps. Previous colonoscopy was March 2017. She does have a history of diverticular disease and this had a sigmoid colectomy September 2013. She denies any abdominal pain. The bowel prep did stimulate a hemorrhoid with some slight bleeding. She otherwise states that she and enjoys good health. [facility] Medical History (Updated 07/22/22 @ 06:[address] Angus Baker MD) Alcohol use Anxiety Back pain Gastric reflux GERD (gastroesophageal reflux disease) Gout High cholesterol History of colon polyps History of stress test Rheumatoid arthritis Vertigo Wears dentures Wears glasses Home Medications Cholecalciferol (Vitamin D3) [Vitamin D3] 5,000 units PO DAILY 11/20/15 [History Last Taken 05/31/19] cyclobenzaprine 10 mg tablet 10 mg PO QHS PRN Back Pain 11/20/15 [History Last Taken 05/30/19] omega-3 fatty acids-fish oil 340 mg-1,000 mg capsule (Fish Oil) 1,000 mg PO DAILY 11/20/15 [History Last Taken 05/31/19] L.acidoph, paracasei,B. lactis 10 billion cell capsule 1 ea PO QHS 03/24/17 [History Last Taken 05/30/19] biotin 1 mg tablet 1 mg PO DAILY 05/31/19 [History Last Taken 05/30/19] naproxen sodium 220 mg tablet 440 mg PO BID 05/31/19 [History Last Taken 05/28/19] omeprazole 20 mg capsule,delayed release 20 mg PO BID gerd 05/31/19 [History Last Taken 05/31/19] cranberry fruit concentrate 250 mg chewable tablet (Azo Cranberry) 500 mg PO DAILY 09/14/20 [History Last Taken Unknown] hydroxychloroquine 200 mg tablet 300 mg PO DAILY RA 09/14/20 [History Last Taken Unknown] simvastatin 20 mg tablet 20 mg PO QHS 09/14/20 [History Last Taken Unknown] sulfamethoxazole 800 mg-trimethoprim 160 mg tablet 1 tab PO DAILY PRN PRN morning after intercourse 09/14/20 [History Last Taken Unknown] docusate sodium 100 mg capsule (DOK) 100 mg PO QHS PRN constipation 06/09/22 [History Last Taken Unknown] elderberry fruit 350 mg capsule 350 mg PO DAILY 06/09/22 [History Last Taken Unknown] vitamin E (dl, acetate) 180 mg (400 unit) capsule 180 mg PO DAILY 06/09/22 [History Last Taken Unknown] zinc acetate 50 mg (zinc) capsule 50 mg PO DAILY 06/09/22 [History Last Taken Unknown] methylcellulose (laxative) (Citrucel Sugar Free oral powder) 2 g PO DAILY 06/20/22 [History Last Taken Unknown] nitroglycerin 0.4 mg sublingual tablet 0.4 mg sublingual Q5M PRN esophagus spasm 07/18/22 [History Last Taken Unknown] Allergy/AdvReac Type Severity Reaction Status Date / Time erythromycin base Allergy Severe Anaphylaxis Verified 06/27/22 08:38 [Erythromycin Base] atorvastatin Allergy Pain in Verified 06/27/22 08:38 joints clindamycin Allergy Hives Verified 06/27/22 08:38 amoxicillin [Amoxicillin] AdvReac Upset Verified 06/27/22 08:38 Stomach amoxicillin trihydrate AdvReac Diarrhea Verified 06/27/22 08:38 [From Augmentin] cefuroxime axetil AdvReac Diarrhea Verified 06/27/22 08:38 [From Ceftin] methylprednisolone AdvReac Heart races Verified 06/27/22 08:38 potassium clavulanate AdvReac Diarrhea Verified 06/27/22 08:38 [From Augmentin] prednisone AdvReac Swelling Verified 06/27/22 08:38 Family History Mother Breast cancer Alzheimer's dementia Father Cancer brain, lung Surgical History History of carpal tunnel surgery of right wrist History of colectomy History of colonoscopy (~2013) History of dilation and curettage History of esophagogastroduodenoscopy (EGD) History of hysterectomy History of tonsillectomy and adenoidectomy Social History household members: spouse Smoking Status: Former smoker alcohol intake: current alcohol intake frequency: 0-2 drinks per day what type of physical activity do you participate in: none do you feel safe at home: Yes ROS Constitutional Constitutional: Reports systems reviewed and no addt'l complaints, except as documented Cardiovascular Cardiovascular: Denies chest pain Respiratory/Chest Respiratory/Chest: Denies shortness of breath at rest Gastrointestinal Gastrointestinal: Denies abdominal pain, change in bowel habits, hematochezia or melena Physical Exam Const alert, oriented x3 and no apparent distress General Appearance: cooperative and comfortable Eyes General Eye: normal appearance of both eyes Neck General: normal visual inspection Chest inspection of chest normal Resp Effort and Inspection: able to speak in complete sentences and symmetric chest movement Auscultation: clear to auscultation bilaterally Cardio regular rate and regular rhythm GI soft to palpation, non-tender and non-distended Extremity no calf tenderness Neuro oriented x3 Psych thought process normal Assessment & Plan Assessment/Plan (1) History of colon polyps: PLAN: Plan I recommended the patient a colonoscopy with possible biopsy or polypectomy as indicated. She is aware of the technique, benefit, risk, alternatives. She has had an opportunity to ask and have questions answered. She presents via open access today. Angus Baker M.D., F.A.C.S.
[2022-07-22 06:25] VITALS: BP 124/73; PULSE 78; RESP 16; TEMP 37; O2SAT 99; BMI 28.6
[2022-07-22] MEDS: Lactated Ringers 1,000 ML 15 ML IV (06:29)
--- NOTE | 2022-07-22 07:00 | COLBX_PTH ---
PATIENT: RODRIGO SOLARES LOC: EN U#:[id number] AGE/SX: 66/F ROOM: RE07/22/[address]: Dr. Angus Baker MD : 1955 BED: DIS: 07/22/2022 SPEC #: [id number] RECD: 07/22/22 10:01 STATUS: LATASHA RERoc #: [id number] GT: 07/22/22 07:[address]: Angus Baker DEPT: SURGICAL PATHOLOGY RECD BY: Kalli Martinez ENTERED: 07/22/22 11:30 SP TYPE: COLON BX OTHR DR: QUINN Nguyen Tissues: A - Cecum, NOS B - Transverse colon C - Sigmoid colon biopsy D - Sigmoid colon biopsy Procedures: Surgery Specimen Level IV HEADER OPERATION: Colonoscopy ? open access (MAC), biopsy, polypectomy PRE-OP DIAGNOSIS: History of colon polyps TISSUE SUBMITTED: A ? Cecum polyp biopsy, B ? Proximal transverse polyp biopsy, C ? Proximal sigmoid polyp (cold snare), D ? Mid sigmoid polyp (cold snare) MICROSCOPIC DIAGNOSIS A. Cecal polyp, biopsy: Fragments of tubular adenoma. B. Proximal transverse colon polyp, biopsy: Tubular adenoma. C. Proximal sigmoid colon polyp, biopsy: Fragment of benign colonic mucosa. See comment. D. Mid sigmoid colon polyp, biopsy: Fragments of tubular adenoma. AM:haile 07/23/2022 COMMENT C. Neither hyperplastic nor adenomatous change is identified. Clinical correlation is suggested. MICROSCOPIC DESCRIPTION Slides are reviewed. GROSS DESCRIPTION A - Received in fixative is one container labeled with the patient's name and designated cecal polyp biopsy. The specimen consists of multiple irregular fragments of light meyers soft tissue that in aggregate measure 1.0 x 0.2 x 0.1 cm. The specimen is totally submitted in one cassette. B - Received in fixative is one container labeled with the patient's name and designated proximal transverse polyp biopsy. The specimen consists of one irregular fragment of light meyers soft tissue that measures 0.3 x 0.3 x 0.1 cm. The specimen is totally submitted in one cassette. C - Received in fixative is one container labeled with the patient's name and designated proximal sigmoid polyp biopsy. The specimen consists of one irregular fragment of light meyers soft tissue that measures 0.2 x 0.1 x <0.1 cm. The specimen is totally submitted in one cassette. D - Received in fixative is one container labeled with the patient's name and designated mid sigmoid polyp biopsy. The specimen consists of multiple irregular fragments of light meyers soft tissue that in aggregate measure 0.7 x 0.5 x 0.1 cm. The specimen is totally submitted in one cassette. / SJ:rg 07/22/2022 TC:5 CPT: 16372 x4
[2022-07-22 07:20] VITALS: BP 113/59; BP 124/73; PULSE 70; RESP 16; TEMP 36.6; O2SAT 99
--- NOTE | 2022-07-22 07:23 | OP.CCLET_ITS ---
07/22/2022 Alesia Montes De Oca Re : Colonoscopy procedure for Yina Garcia Dear Tavon This procedure was performed on Friday, July 22, 2022. My impressions and recommendations are as follows: Impressions : - Hemorrhoids found on perianal exam. - Patent end-to-side colo-colonic anastomosis, characterized by healthy appearing mucosa. - One 5 mm polyp in the cecum, removed with a cold biopsy forceps. Resected and retrieved. - One 4 mm polyp in the proximal transverse colon, removed with a cold biopsy forceps. Resected and retrieved. - One 6 mm polyp in the proximal sigmoid colon, removed with a cold snare. Resected and retrieved. - One 6 mm polyp in the distal sigmoid colon, removed with a cold snare. Resected and retrieved. Recommendations : - Repeat colonoscopy in 5 years for surveillance based on pathology results. - Telephone my office for pathology results in 1 week. - Continue present medications. My findings are described in the full procedure note, which is enclosed. If I can be of further assistance, please feel free to contact me at Doctor phone number(s): Work: . Sincerely, Angus Baker MD 07/22/2022 7:22:25 AM This report has been signed electronically.
--- NOTE | 2022-07-22 07:23 | OP.COLON_ITS ---
Patient Name: Yina Garcia Procedure Date: 07/22/2022 6:52 AM Date of : 1955 Age: 66 Procedure: Colonoscopy Indications: High risk colon cancer surveillance: Personal history of colonic polyps Providers: Angus Baker MD Referring MD: Angus Baker MD Medicines: See the Anesthesia note for documentation of the administered medications Patient Profile: Last Colonoscopy: March 2017. Complications: No immediate complications. Procedure: Pre-Anesthesia Assessment: - Prior to the procedure, a History and Physical was performed, and patient medications and allergies were reviewed. The patient's tolerance of previous anesthesia was also reviewed. The risks and benefits of the procedure and the sedation options and risks were discussed with the patient. All questions were answered, and informed consent was obtained. Prior Anticoagulants: The patient has taken no previous anticoagulant or antiplatelet agents. ASA Grade Assessment: II - A patient with mild systemic disease. After reviewing the risks and benefits, the patient was deemed in satisfactory condition to undergo the procedure. After I obtained informed consent, the scope was passed under direct vision. Throughout the procedure, the patient's blood pressure, pulse, and oxygen saturations were monitored continuously. The Colonoscope was introduced through the anus and advanced to the cecum, identified by appendiceal orifice and ileocecal valve. The colonoscopy was performed without difficulty. The patient tolerated the procedure well. The quality of the bowel preparation was good. The ileocecal valve and the appendiceal orifice were photographed. Scope In: 6:58:47 AM Scope Withdrawal Time 0 hours 13 minutes 43 seconds Scope Out: 7:15:57 AM Total Procedure Duration Time 0 hours 17 minutes 10 seconds Findings: Hemorrhoids were found on perianal exam. There was evidence of a prior end-to-side colo-colonic anastomosis in the recto-sigmoid colon. This was patent and was characterized by healthy appearing mucosa. A 5 mm polyp was found in the cecum. The polyp was sessile. The polyp was removed with a cold biopsy forceps. Resection and retrieval were complete. A 4 mm polyp was found in the proximal transverse colon. The polyp was sessile. The polyp was removed with a cold biopsy forceps. Resection and retrieval were complete. A 6 mm polyp was found in the proximal sigmoid colon. The polyp was sessile. The polyp was removed with a cold snare. Resection and retrieval were complete. A 6 mm polyp was found in the distal sigmoid colon. The polyp was sessile. The polyp was removed with a cold snare. Resection and retrieval were complete. Impression: - Hemorrhoids found on perianal exam. - Patent end-to-side colo-colonic anastomosis, characterized by healthy appearing mucosa. - One 5 mm polyp in the cecum, removed with a cold biopsy forceps. Resected and retrieved. - One 4 mm polyp in the proximal transverse colon, removed with a cold biopsy forceps. Resected and retrieved. - One 6 mm polyp in the proximal sigmoid colon, removed with a cold snare. Resected and retrieved. - One 6 mm polyp in the distal sigmoid colon, removed with a cold snare. Resected and retrieved. Recommendation: - Repeat colonoscopy in 5 years for surveillance based on pathology results. - Telephone my office for pathology results in 1 week. - Continue present medications. Procedure Code(s): --- Professional --- 55023, Colonoscopy, flexible; with removal of tumor(s), polyp(s), or other lesion(s) by snare technique 50062, 59, Colonoscopy, flexible; with biopsy, single or multiple Diagnosis Code(s): --- Professional --- Z86.010, Personal history of colonic polyps K64.9, Unspecified hemorrhoids Z98.0, Intestinal bypass and anastomosis status D12.0, Benign neoplasm of cecum D12.3, Benign neoplasm of transverse colon (hepatic flexure or splenic flexure) D12.5, Benign neoplasm of sigmoid colon CPT copyright 2017 [employer]. All rights reserved. The codes documented in this report are preliminary and upon handbell choir director review may be revised to meet current compliance requirements. Angus Baker MD 07/22/2022 7:22:25 AM This report has been signed electronically. Number of Addenda: 0 Note Initiated On: 07/22/2022 6:52 AM
[2022-07-22 07:25] VITALS: BP 105/86; BP 124/73; PULSE 78; RESP 16; O2SAT 97
[2022-07-22 07:30] VITALS: BP 122/53; BP 124/73; PULSE 70; RESP 16; O2SAT 98
[2022-07-22 07:35] VITALS: BP 119/67; BP 124/73; PULSE 69; RESP 16; TEMP 36.6; O2SAT 100
[2022-07-22 07:47] VITALS: BP 124/73
== END 2022-07-22 07:59 | disposition home or self-care (01) ==
LOC: EN 05:53 → AC 05:53
PROVIDERS: PCP Physician Assistant; Referring Provider Physician Assistant; Visit Provider Surgery
PROC: 0DJD8ZZ Inspection of Lower Intestinal Tract, Via Natural or Artificial Opening Endoscopic (ICD-10-PCS; CPT 45378; principal; 2022-07-22 06:55)
DX: K64.9 Unspecified hemorrhoids (principal); Z87.891 Personal history of nicotine dependence; E78.00 Pure hypercholesterolemia, unspecified; Z86.010 Personal history of colon polyps; Z98.0 Intestinal bypass and anastomosis status; D12.3 Benign neoplasm of transverse colon; D12.0 Benign neoplasm of cecum; D12.5 Benign neoplasm of sigmoid colon
CPT/HCPCS: 45385; 45380; 88305; J7120; J2405

== ENCOUNTER 2023-03-06 12:02 | Emergency (ER) | payer MEDICARE, OTHER, SELFPAY ==
[2023-03-06 12:03] VITALS: BP 168/78; PULSE 72; RESP 16; TEMP 36.6; O2SAT 99; BMI 28.8
--- NOTE | 2023-03-06 13:20 | EKG12_ITS ---
Test Reason : PALPS Blood Pressure : / mmHG Vent. Rate : 071 BPM Atrial Rate : 071 BPM P-R Int : 142 ms QRS Dur : 094 ms QT Int : 450 ms P-R-T Axes : 057 033 018 degrees QTc Int : 489 ms Normal sinus rhythm Normal ECG Confirmed by PATRICIA URIOSTEGUI, KARLIE ([id number]), offline editor FRANCISCO BAUTISTA ([id number]) on 03/16/2023 7:46:06 AM Referred By: SHAWN/ELLA Confirmed By:DOMONIQUE GOMEZ MD
--- NOTE | 2023-03-06 13:31 | EX.ED.DYSGE1 ---
HPI History of Present Illness Chief Complaint: Palpitations Narrative Narrative: 67-year-old female, past medical history of rheumatoid arthritis and GERD, also takes simvastatin, presents with heart palpitations that she feels is related to stress and anxiety. 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 Yesterday, she felt heart palpitations. Today, they were worse. She called her primary care provider's nurse, and had to be talked down because she was hyperventilating. At that time she had mild facial numbness. That has resolved. She denies any chest pain, fever, chills or other symptoms. She felt similar palpitations that were fast, pounding heart rates, over the last 24 to 48 hours. She was told by her primary care provider's office to come to the emergency department for evaluation although her symptoms have essentially resolved. She did notice as well that her blood pressure was slightly elevated. [facility] Medical History Alcohol use Anxiety Back pain Gastric reflux GERD (gastroesophageal reflux disease) Gout High cholesterol History of colon polyps History of stress test Rheumatoid arthritis Vertigo Wears dentures Wears glasses Home Medications Cholecalciferol (Vitamin D3) [Vitamin D3] 5,000 units PO DAILY 11/20/15 [History Last Taken 05/31/19] cyclobenzaprine 10 mg tablet 10 mg PO QHS PRN Back Pain 11/20/15 [History Last Taken 05/30/19] omega-3 fatty acids-fish oil 340 mg-1,000 mg capsule (Fish Oil) 1,000 mg PO DAILY 11/20/15 [History Last Taken 05/31/19] L.acidoph, paracasei,B. lactis 10 billion cell capsule 1 ea PO QHS 03/24/17 [History Last Taken 05/30/19] biotin 1 mg tablet 1 mg PO DAILY 05/31/19 [History Last Taken 05/30/19] naproxen sodium 220 mg tablet 440 mg PO BID 05/31/19 [History Last Taken 05/28/19] omeprazole 20 mg capsule,delayed release 20 mg PO BID gerd 05/31/19 [History Last Taken 07/22/22] cranberry fruit concentrate 250 mg chewable tablet (Azo Cranberry) 500 mg PO DAILY 09/14/20 [History Last Taken Unknown] hydroxychloroquine 200 mg tablet 300 mg PO DAILY RA 09/14/20 [History Last Taken Unknown] simvastatin 20 mg tablet 20 mg PO QHS 09/14/20 [History Last Taken Unknown] sulfamethoxazole 800 mg-trimethoprim 160 mg tablet 1 tab PO DAILY PRN PRN morning after intercourse 09/14/20 [History Last Taken Unknown] docusate sodium 100 mg capsule (DOK) 100 mg PO QHS PRN constipation 06/09/22 [History Last Taken Unknown] elderberry fruit 350 mg capsule 350 mg PO DAILY 06/09/22 [History Last Taken Unknown] vitamin E (dl, acetate) 180 mg (400 unit) capsule 180 mg PO DAILY 06/09/22 [History Last Taken Unknown] zinc acetate 50 mg (zinc) capsule 50 mg PO DAILY 06/09/22 [History Last Taken Unknown] methylcellulose (laxative) (Citrucel Sugar Free oral powder) 2 g PO DAILY 06/20/22 [History Last Taken Unknown] nitroglycerin 0.4 mg sublingual tablet 0.4 mg sublingual Q5M PRN esophagus spasm 07/18/22 [History Last Taken Unknown] Allergy/AdvReac Type Severity Reaction Status Date / Time erythromycin base Allergy Severe Anaphylaxis Verified 03/06/23 12:04 [Erythromycin Base] atorvastatin Allergy Pain in Verified 03/06/23 12:04 joints clindamycin Allergy Hives Verified 03/06/23 12:04 amoxicillin [Amoxicillin] AdvReac Upset Verified 03/06/23 12:04 Stomach amoxicillin trihydrate AdvReac Diarrhea Verified 03/06/23 12:04 [From Augmentin] cefuroxime axetil AdvReac Diarrhea Verified 03/06/23 12:04 [From Ceftin] methylprednisolone AdvReac Heart races Verified 03/06/23 12:04 potassium clavulanate AdvReac Diarrhea Verified 03/06/23 12:04 [From Augmentin] prednisone AdvReac Swelling Verified 03/06/23 12:04 Family History Mother Breast cancer Alzheimer's dementia Father Cancer brain, lung Surgical History History of carpal tunnel surgery of right wrist History of colectomy History of colonoscopy (~2013) History of dilation and curettage History of esophagogastroduodenoscopy (EGD) History of hysterectomy History of tonsillectomy and adenoidectomy Social History household members: spouse Smoking Status: Former smoker alcohol intake: current alcohol intake frequency: 0-2 drinks per day what type of physical activity do you participate in: none do you feel safe at home: Yes ROS ROS ED ROS Narrative Constitutional: No fever, no chills. HEENT: No sore throat. No neck pain. No loss of vision. No rhinorrhea. Cardiovascular: No chest pain. Positive palpitations. No pedal edema. Respiratory: No cough, no shortness of breath. Abdominal: No abdominal pain. No nausea. No vomiting. Genitourinary: No dysuria. No hematuria. Musculoskeletal: No myalgias. No arthralgias. Neurologic: No headaches. No dizziness. No lightheadedness. Skin: No rash. No change in color. Psychiatric: No depression. Positive stress and anxiety. EXAM Physical Exam Narrative Exam Narrative: Afebrile. Vital signs noted. HEENT: Normocephalic. Atraumatic. PERRL, EOMI. Neck soft and supple. No point tenderness or step off. Cardiovascular: Regular rate and rhythm. No murmurs, rubs, or gallops appreciated. Respiratory: No tachypnea. Lungs clear to auscultation bilaterally. Gastrointestinal: Abdomen soft, nontender, with normoactive bowel sounds. No rebound or guarding. Neurological: Awake. Alert. Nonfocal, nonlateralizing. Skin: No rash. Normal color. No pallor. Musculoskeletal: No pedal edema. Full range of motion extremities. Const Vital Signs: 03/06/23 12:03 03/06/23 12:27 03/06/23 13:39 Temperature 98 F Temperature Source Temporal Pulse Rate 72 Respiratory Rate 16 Respiratory Effort Normal Blood Pressure 168/78 H Blood Pressure Mean 108 Pulse Ox 99 96 Oxygen Delivery Method Room Air Room Air MDM MDM MDM Narrative Medical decision making narrative: In the differential diagnosis is acute coronary syndrome and stress related elevation of blood pressure and anxiety. EKG was obtained and interpreted by myself independently as normal sinus rhythm at 71 bpm without ectopy or acute ST changes. No STEMI. I am not concerned for TIA or stroke given her facial numbness as I do feel it is probably related to her hyperventilation. I do feel that laboratory work is indicated along with chest x-ray. I do feel a single troponin would be of benefit and that she does not require serial enzymes. I reviewed her laboratory work and she has normal white count of 5.4, hemoglobin normal at 12.12, platelet count normal at 243. Electrolyte panel is significant for chloride of 110 which I think is nonspecific, BUN and creatinine are normal. Glucose normal at 91, high-sensitivity troponin 11. I do feel that this is a greater than 6-hour troponin. I do not feel that she requires serial enzymes. Chest x-ray 1 view interpreted by myself independently shows no evidence of an acute process. No pneumonia or pneumothorax. At this point in time, I feel she can be discharged to follow-up with her primary care provider. Return instructions to the emergency department were reviewed. I do not feel she requires observation. Disposition is discharged home in stable condition. History & Record Review Discussion w/independent historian: Patient and Family Additional record(s) reviewed:: Prior labs Lab Data Attestation: I reviewed the patient's lab results. Labs: Laboratory Results - last 24 hr 03/06/23 13:30 WBC 5.4 RBC 3.91 L Hgb 12.2 Hct 37.7 MCV 96.4 MCH 31.2 MCHC 32.4 RDW Std Deviation 47.1 H RDW Coeff of Yusra 13.2 Plt Count 243 MPV 9.1 Immature Gran % (Auto) 0.200 Neut % (Auto) 60.3 Lymph % (Auto) 26.8 [place] % (Auto) 10.7 H Eos % (Auto) 1.3 Baso % (Auto) 0.7 Absolute Neuts (auto) 3.3 Absolute Lymphs (auto) 1.45 Nucleated RBC % 0 Sodium 144 Potassium 3.5 Chloride 110 H Carbon Dioxide 29.0 Anion Gap 5 BUN 10 Creatinine 0.63 Estim Creat Clear Calc 47.78 Est GFR (MDRD) Af Amer 120 Est GFR (MDRD) Non-Af 99 BUN/Creatinine Ratio 15.8 Glucose 91 Calcium 9.5 Troponin I High Sens 11 Radiography Diagnostic Testing: Clinical Impression(s) from Imaging Studies Chest X-Ray 03/06/23 13:45 IMPRESSION: No acute abnormality is seen. Stable examination. Electronically Signed: Jakob Sofia MD at 13:59 EDT , Discharge Plan Triage Chief Complaint: Palpitations ED Provider: Se Cleaning Dx/Rx/DC Orders Clinical Impression: Palpitations, Stress at work Prescriptions: No Action simvastatin 20 mg tablet 20 mg PO QHS sulfamethoxazole-trimethoprim 800-160 mg tablet 1 tab PO DAILY PRN PRN (Reason: morning after intercourse) zinc acetate 50 mg (zinc) capsule 50 mg PO DAILY vitamin E (dl, acetate) 180 mg (400 unit) capsule 180 mg PO DAILY elderberry fruit 350 mg capsule 350 mg PO DAILY Citrucel Sugar Free Powder 2 g PO DAILY docusate sodium [DOK] 100 mg capsule 100 mg PO QHS PRN (Reason: constipation) Patient Comments: stool softener Fish Oil 1 EACH capsule 1,000 mg PO DAILY Patient Comments: supplement cyclobenzaprine 10 MG tablet 10 mg PO QHS PRN (Reason: Back Pain) Patient Comments: muscle relaxer Cholecalciferol (Vitamin D3) [Vitamin D3] 5,000 UNIT capsule 5,000 units PO DAILY Patient Comments: vitamin L.acidoph, paracasei,B. lactis 1 EACH capsule 1 ea PO QHS Azo Cranberry 250 mg tablet,chewable 500 mg PO DAILY hydroxychloroquine 200 mg tablet 300 mg PO DAILY biotin 1 MG tablet 1 mg PO DAILY naproxen sodium 220 MG tablet 440 mg PO BID omeprazole 20 MG capsule 20 mg PO BID Patient Comments: acid reflux nitroglycerin 0.4 MG tablet, sublingual 0.4 mg sublingual Q5M PRN (Reason: esophagus spasm) Patient Comments: for chest pain Rx Instructions: Place one tab under tongue every 5 minutes x 3 doses as needed Primary Care Provider: Alesia Montes De Oca Referrals: Alesia Montes De Oca PA [Primary Care Provider] - 3-5 Days if not improving Disposition Disposition: Home, Self Care
[2023-03-06 13:39] VITALS: O2SAT 96
--- NOTE | 2023-03-06 13:45 | RAD_ITS ---
STUDY: X-RAY CHEST REASON FOR EXAM: Female, 67 years old. Chest pain TECHNIQUE: Single AP portable view of the chest. COMPARISON: Comparison is made with prior study generate 22/12/2019. FINDINGS: EKG electrodes are seen. The lungs are clear and expanded. There is no demonstrated pleural abnormality. Normal size heart. Normal mediastinum and karon. Normal visualized pulmonary arteries. There is atherosclerotic tortuosity of the aortic arch and descending thoracic aorta. There are degenerative changes of the visualized thoracic spine. Normal visualized ribs, clavicles, and shoulders. There is no demonstrated abnormality of the visualized soft tissue structures of the upper abdomen. RAD/Chest 1 View (Portable) IMPRESSION: No acute abnormality is seen. Stable examination. Electronically Signed: Jakob Sofia MD at 13:59 EDT ,
[2023-03-06 13:51] LABS: Absolute Lymphocyte Count 1.45 X10^3/uL (0.83-4.51); Absolute Neutrophil Count 3.3 X10^3/uL (2.0-7.7); Basophil# 0.04 X10^3/uL; Basophil% 0.7 % (0-1); Eosinophil# 0.07 X10^3/uL; Eosinophils% 1.3 % (0-5); Hematocrit 37.7 % (37-47); Hemoglobin 12.2 g/dL (12.0-15.0); Lymphocyte # 1.45 X10^3/ul (0.83-4.51); Lymphocyte % 26.8 % (19-41); Mean Corp Hgb Conc 32.4 g/dL (32-36); Mean Corpuscular Hgb 31.2 pg (27.0-32.0); Mean Corpuscular Volume 96.4 fL (81-99); Mean Platelet Vol. 9.1 fl (6.2-12.0); Monocyte# 0.58 X10^3/uL; Monocyte% 10.7 % (0-10); NRBC Flagged by Analyzer 0 % (0-5); Neutrophil # 3.27 X10^3/uL (2.7-7.7); Neutrophil % 60.3 % (47-70); Platelet Count 243 K/mm3 (150-450); RBC Distribution Width CV 13.2 % (11.6-14.6); RBC Distribution Width SD 47.1 fl (35.1-43.9); Red Blood Count 3.91 M/mm3 (4.2-5.4); White Blood Count 5.4 K/mm3 (4.4-11.0)
[2023-03-06 14:06] LABS: Anion Gap 5 (5-15); BUN 10 mg/dL (7-18); BUN/Creat Ratio 15.8 RATIO (10-20); Calcium,Total 9.5 mg/dL (8.5-10.1); Chloride 110 mmol/L (98-107); Creatinine, Serum 0.63 mg/dL (0.55-1.02); EST Glomerular Filtration Rate 99 mL/min (>60); Est Glom Filt Rate - Afr Amer 120 mL/min (>60); Estimated Creatinine Clearance 47.78 ml/min; Glucose 91 mg/dL (74-106); Potassium 3.5 mmol/L (3.5-5.1); Sodium Level 144 mmol/L (136-145); Troponin-I HS 11 pg/mL (3.0-54.0)
[2023-03-06 14:53] VITALS: PULSE 63; RESP 17; O2SAT 98
== END 2023-03-06 14:59 | disposition home or self-care (01) ==
PROVIDERS: Emergency Provider Emergency Medicine; PCP Physician Assistant; Visit Provider Emergency Medicine
DX: R00.2 Palpitations (principal); M06.9 Rheumatoid arthritis, unspecified; Z87.891 Personal history of nicotine dependence; Z56.6 Other physical and mental strain related to work; E78.00 Pure hypercholesterolemia, unspecified; K21.9 Gastro-esophageal reflux disease without esophagitis
CPT/HCPCS: 71045; 80048; 84484; 85025; 93005; 99284

== ENCOUNTER → 2023-03-16 | Outpatient (CLI) | payer MEDICARE, OTHER, SELFPAY | END | disposition home or self-care (01) | LOC: SL 19:49 | PROVIDERS: PCP Physician Assistant; Visit Provider Physician Assistant | DX: G47.30 Sleep apnea, unspecified (principal) | CPT/HCPCS: 95811 ==